=== PATIENT | female | born 1980 | race Caucasian/White ===

== ENCOUNTER 2020-05-09 11:39 | Inpatient (IN) | payer BC ==
[~2020-05-09 11:39] MED LIST: Lidocaine 1.5% with EPINEPHrine 1:200,000 5 ML Amp ONE
[2020-05-09] MEDS ORDERED: Sodium Chloride 0.9% 10 ML Syringe FLUSH PRN (11:57)
[2020-05-09] MEDS ORDERED: Nalbuphine 10 MG/ML Syringe IVPUSH PRN (11:57)
[2020-05-09] MEDS ORDERED: Oxytocin/Lactated Ringers 10 UNIT/1,000 ML BAG IV SCH ×2 (12:00)
--- NOTE | 2020-05-09 12:48 | PCM.PREANE ---
Preanesthetic Assessment - Procedure Proposed Procedure: Continuous labor epidural - Anesthesia/Transfusion/Family Hx Anesthesia History: Prior Anesthesia Without Reaction Transfusion History: No Prior Transfusion(s) - Review of Systems General: No Symptoms Pulmonary: No Symptoms Cardiovascular: No Symptoms Gastrointestinal: No Symptoms Neurological: No Symptoms Other: Reports: None - Physical Assessment ASA Class: 2 Mental Status: Alert & Oriented x3 Airway Class: Mallampati = 2 Dentition: Reports: Normal Dentition Thyro-Mental Finger Breadths: 3 Mouth Opening Finger Breadths: 3 ROM/Head Extension: Full Lungs: Clear to Auscultation, Normal Respiratory Effort Cardiovascular: Regular Rate, Regular Rhythm - Lab Values: Laboratory Last Values WBC 12.85 K/mm3 (3.98-10.04) H 05/09/20 12:20 RBC 3.72 M/mm3 (3.98-5.22) L 05/09/20 12:20 Hgb 11.5 gm/dl (11.2-15.7) 05/09/20 12:20 Hct 36.2 % (34.1-44.9) 05/09/20 12:20 MCV 97.3 fl (79.4-94.8) H 05/09/20 12:20 MCH 30.9 pg (25.6-32.2) 05/09/20 12:20 MCHC 31.8 g/dl (32.2-35.5) L 05/09/20 12:20 RDW Std Deviation 46.4 fL (36.4-46.3) H 05/09/20 12:20 Plt Count 177 K/mm3 (182-369) L 05/09/20 12:20 MPV 12.9 fl (9.4-12.3) H 05/09/20 12:20 Neut % (Auto) 79.0 % (34.0-71.1) H 05/09/20 12:20 Lymph % (Auto) 13.2 % (19.3-51.7) L 05/09/20 12:20 Norman % (Auto) 6.7 % (4.7-12.5) 05/09/20 12:20 Eos % (Auto) 0.5 (0.7-5.8) L 05/09/20 12:20 Baso % (Auto) 0.2 % (0.1-1.2) 05/09/20 12:20 Neut # (Auto) 10.14 K/mm3 (1.56-6.13) H 05/09/20 12:20 Lymph # (Auto) 1.70 K/mm3 (1.18-3.74) 05/09/20 12:20 Norman # (Auto) 0.86 K/mm3 (0.24-0.36) H 05/09/20 12:20 Eos # (Auto) 0.07 K/mm3 (0.04-0.36) 05/09/20 12:20 Baso # (Auto) 0.03 K/mm3 (0.01-0.08) 05/09/20 12:20 - Allergies Allergies/Adverse Reactions: Allergies Allergy/AdvReac Type Severity Reaction Status Date / Time No Known Allergies Allergy Verified 05/09/20 12:41 - Acknowledgements Anesthesia Type Planned: Epidural Pt an Appropriate Candidate for the Planned Anesthesia: Yes Alternatives and Risks of Anesthesia Discussed w Pt/Guardian: Yes Pt/Guardian Understands and Agrees with Anesthesia Plan: Yes PreAnesthesia Questionnaire - CURRENT (IN HOUSE) MEDS Current Meds: Current Medications Oxytocin/Lactated Ringer's (Pitocin In Lr 10 Units/1,000 Ml) 10 unit in 1,000 mls @ 12 mls/hr IV TITRATE JESSE; Protocol Oxytocin/Lactated Ringer's (Pitocin In Lr 10 Units/1,000 Ml) 10 unit in 1,000 mls @ 500 mls/hr IV .CONTINUOUS JESSE Lactated Ringer's (Ringers, Lactated) 1,000 mls @ 100 mls/hr IV ASDIRECTED JESSE Nalbuphine HCl (Nubain) 10 mg IVPUSH Q2H PRN PRN Reason: Pain Sodium Chloride (Saline Flush) 10 ml FLUSH ASDIRECTED PRN PRN Reason: Keep Vein Open
[2020-05-09] MEDS ORDERED: Bupivacaine/fentaNYL/NS 100 ML Bag EPIDUR PRN (13:05)
[2020-05-09] MEDS ORDERED: fentaNYL 100 MCG/2 ML SDV EPIDUR PRN (13:05)
[2020-05-09] MEDS ORDERED: diphenhydrAMINE 50 MG/ML SDV IVPUSH PRN (13:05)
[2020-05-09] MEDS ORDERED: ePHEDrine 50 MG/ML SDV IVPUSH PRN (13:05)
[2020-05-09] MEDS: Lactated Ringers 1,000 ML IV SCH ×3 (14:07→17:43)
--- NOTE | 2020-05-09 17:44 | PCM.LDHP ---
L&D History of Present Illness - General Date of Service: 05/09/20 Admit Problem/Dx: Patient Status Order with Admit Dx/Problem 05/09/20 11:58 Patient Status [ADT] Routine Admission Diagnosis/Problem Admission Diagnosis/Problem 05/09/20 17:36 Zahra is a 39-year-old 3 para 1999 white female who is presently at 40-1/7 weeks gestational age with an EF 05/08/2020 who is admitted for induction of labor. Source of Information: Patient History Limitations: Reports: No Limitations - History of Present Illness Introduction:: Zahra is a 39-year-old 3 para 2000 white female who is presently at 40-1/7 weeks gestational age with an EF 05/08/2020 who is admitted for induction of labor.Indications include increased distance from the hospital and multiparous status. The procedure, risks, benefits and alternatives of care including Financial onset of labor discussed in detail with patient. She appears understand as does her and they wish to proceed. 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 MILTON of 05/08/2020 was determined by a certain last menstrual starting 08/02/2019 and supported by an ultrasound done on 12/23/2019. Patient had menarche at age 18. Cycles every 28 days and regular. She was not using any control to time conception. Last menstrual period was approximately. Her past obstetric history includes the followin. Male infant born 08/21/2006 at 40 weeks gestational age after 8 hours of labor. weight was 6 lbs. 14 oz. Baby is born via . Child born in [facility]. Child's name is Winston. 2. Male born 04/21/2009 at 38 weeks gestational age after 10 hours of labor. weight 6 lbs. 12 oz. Baby was born via . Child was born in [place]. Had an epidural for labor analgesia. Child's name is Reynaldo. Umbilical cord had 2 vessels only. course: Patient's first visit occurred on 10/19/2019 at 11 weeks gestational age. Patient seen on a regular basis. Wakings from 141-159.4 pounds. Vital signs are stable throughout the course and fundal height growth was appropriate. Patient is group B strep negative. MMR shows non- immunity. Patient desired decorating consultant intervention prior to this delivery. She desires epidural. Rupert depression screening score on 12/19/2019 was 5/30. Patient plans to breast-feed. Pre-quell noninvasive screen was negative for trisomy 21, 18 and 13. Tdap was given on 04/11/2020. She did have one urinary tract infection in the course of . Laboratory testing and shows blood to be A+. Negative and by screen. Hemoglobin first visit was 11.8 g/dL and platelets are 250,000. Rubella titer showed equivocal results. Urine culture showed negative results. Hepatitis B surface antigen and HIV assays were both negative. Chlamydia and gonorrhea tests were both negative. Second trimester labs showed hemoglobin 12.0 and platelets of 205,000. Her 1 hour glucose was 89 which was normal. RPR on 02/08/2020 was nonreactive. Group B strep screen was negative. Allergies: None Medications: 1. vitamins 1 daily. 2. Ferrous sulfate 325 mg by mouth daily. Past medical history: 2 2. HPV 2004 Past surgical history: 1. LEEP 2005 for SWETHA. He prepped 2. ENT surgery consistent of sinus drainage corrections and wisdom teeth extraction. Family history: Mother is alive and well as is her father. A half brothers alive and well as is a half-sister. Maternal grandmother is secondary to pancreatic cancer at age 70. Maternal grandfather is alive at age 91. Grandmother and grandfather deceasedcause unknown. No known family history of cancer otherwise bleeding or clotting abnormalities, as she related issues or -related problems. Social history: The patient is . 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 She lives in [place] with her family. 's name is Parker. She does not use any significant loss of alcohol, drugs or tobacco. Review of systems: In general patient has no complaints. Baby is active Skin: Negative Lungs: No infectious symptoms or shortness of breath Cardiovascular: No chest pain or exercise intolerance Breasts: No lumps, changes in size, pain, dimpling, discharge or axillary or supraclavicular concerns. GI: Negative : Negative Musculoskeletal: Negative Neurological: Negative In general the patient is well-developed, well-nourished, pleasant female of sta tabitha age in no acute distress. Last visit patient's blood pressure was 120/70. Weight was 159.4 with a pregravid weight of 141. Her height is 5 feet 4. Prepregnancy body mass index is 20.8. Skin is warm dry without lesions. HEENT, neck and back within normal limits. Lungs are clear with good breath sounds in all lung bermudez. Cardiovascular exam shows regular and rhythm without murmurs. Breasts exam done at first visit found to be normal. It is not repeated. Abdomen is gravid with fundal height is 38 cm. Baby in vertex presentation. Genital exam per digital exam on last evaluation was 2 cm, 70% effaced, soft, mid position.. Extremities and neurological exam are grossly within normal limits. 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: Reports: , Other (See Below) Other OB/BYN History: LEEP 2004 - Past Surgical History HEENT Surgical History: Reports: Naso-Sinus Surgery Social & Family History - Family History Family Medical History: Noncontributory - Tobacco Use Smoking Status *Q: Never Smoker Second Hand Smoke Exposure: No - Caffeine Use Caffeine Use: Reports: None - Recreational Drug Use Recreational Drug Use: No H&P Review of Systems - Review of Systems: Review Of Systems: See Below L&D Exam - Exam Exam: See Below - Vital Signs Vital Signs: Last Vital Signs Temp 36.9 C 05/09/20 11:58 Pulse 76 05/09/20 11:58 Resp 16 05/09/20 11:58 BP 119/78 05/09/20 11:58 Pulse Ox Weight: 71.985 kg - Patient Data Lab Results Last 24 hrs: Laboratory Results - last 24 hr 05/09/20 05/09/20 05/09/20 Range/Units 12:20 12:20 13:00 WBC 12.85 H (3.98-10.04) K/mm3 RBC 3.72 L (3.98-5.22) M/mm3 Hgb 11.5 (11.2-15.7) gm/dl Hct 36.2 (34.1-44.9) % MCV 97.3 H (79.4-94.8) fl MCH 30.9 (25.6-32.2) pg MCHC 31.8 L (32.2-35.5) g/dl RDW Std Deviation 46.4 H (36.4-46.3) fL Plt Count 177 L (182-369) K/mm3 MPV 12.9 H (9.4-12.3) fl Neut % (Auto) 79.0 H (34.0-71.1) % Lymph % (Auto) 13.2 L (19.3-51.7) % Huron % (Auto) 6.7 (4.7-12.5) % Eos % (Auto) 0.5 L (0.7-5.8) Baso % (Auto) 0.2 (0.1-1.2) % Neut # (Auto) 10.14 H (1.56-6.13) K/mm3 Lymph # (Auto) 1.70 (1.18-3.74) K/mm3 [place] # (Auto) 0.86 H (0.24-0.36) K/mm3 Eos # (Auto) 0.07 (0.04-0.36) K/mm3 Baso # (Auto) 0.03 (0.01-0.08) K/mm3 COVID-19 (REYNA) Negative (NEGATIVE) Blood Type A POSITIVE Gel Antibody Screen Negative Result Diagrams: 05/09/20 12:20 Problem List Initiated/Reviewed/Updated: Yes Orders Last 24hrs: Active Orders 24 hr Category Date Time Status Patient Status [ADT] Routine ADT 05/09/20 11:58 Active Activity as Tolerated [RC] PFP Care 05/09/20 11:58 Active Communication Order [RC] ASDIRECTED Care 05/09/20 11:58 Active Heart Tones [RC] ASDIRECTED Care 05/09/20 11:58 Active Non Stress Test [RC] PER UNIT ROUTINE Care 05/09/20 11:58 Active Notify Provider [RC] ASDIRECTED Care 05/09/20 13:05 Active Notify Provider [RC] PFP Care 05/09/20 11:58 Active Notify Provider [RC] PRN Care 05/09/20 11:58 Active Peripheral IV Care [RC] . DIRECTED Care 05/09/20 11:58 Active Vital Signs [RC] PER UNIT ROUTINE Care 05/09/20 11:58 Active Regular Diet [DIET] Diet 05/09/20 Lunch Active PATIENT RETYPE [BBK] Routine Lab 05/09/20 13:21 Ordered RAPID PLASMA REAGIN,RPR [CHEM] Routine Lab 05/09/20 12:20 Received Bupivacaine/fentaNYL/NS [fentaNYL/Bupivacaine/NS 2 MCG- Med 05/09/20 13:05 Active 0.125% 100 ML] 100 ml EPIDUR ASDIRECTED PRN Lactated Ringers [Ringers, Lactated] 1,000 ml Med 05/09/20 12:00 Active IV ASDIRECTED Nalbuphine [Nubain] Med 05/09/20 11:57 Active 10 mg IVPUSH Q2H PRN Oxytocin/Lactated Ringers [Pitocin in LR 10 Units/1,000 Med 05/09/20 12:00 Active ML] 10 unit in 1,000 ml IV .CONTINUOUS Oxytocin/Lactated Ringers [Pitocin in LR 10 Units/1,000 Med 05/09/20 12:00 Active ML] 10 unit in 1,000 ml IV TITRATE Sodium Chloride 0.9% [Saline Flush] Med 05/09/20 11:57 Active 10 ml FLUSH ASDIRECTED PRN diphenhydrAMINE [Benadryl] Med 05/09/20 13:05 Active 25 mg IVPUSH Q6H PRN ePHEDrine [ePHEDrine sulfate] Med 05/09/20 13:05 Active 5 mg IVPUSH ASDIRECTED PRN fentaNYL [Sublimaze] Med 05/09/20 13:05 Active 100 mcg EPIDUR Q3H PRN Electronic Heart Tones Ext w TOCO [WOMSER] Oth 05/09/20 11:58 Ordered Routine Electronic Heart Tones Internal [WOMSER] Per Unit Oth 05/09/20 11:58 Ordered Routine Peripheral IV Insertion Adult [OM.PC] Routine Oth 05/09/20 11:58 Ordered Resuscitation Status Routine Resus Stat 05/09/20 11:57 Ordered Medication Orders Diphenhydramine HCl (Benadryl) 25 mg IVPUSH Q6H PRN PRN Reason: pruritis Ephedrine Sulfate (Ephedrine Sulfate) 5 mg IVPUSH ASDIRECTED PRN PRN Reason: Hypotension Fentanyl (Sublimaze) 100 mcg EPIDUR Q3H PRN PRN Reason: Pain Fentanyl/Bupivacaine HCl (Fentanyl/Bupivacaine/Ns 2 Mcg-0.125% 100 Ml) 100 ml EPIDUR ASDIRECTED PRN PRN Reason: Pain Oxytocin/Lactated Ringer's (Pitocin In Lr 10 Units/1,000 Ml) 10 unit in 1,000 mls @ 12 mls/hr IV TITRATE JESSE; Protocol Last Admin: 05/09/20 14:07 Dose: 2 munits/min, 12 mls/hr Documented by: [id number] Oxytocin/Lactated Ringer's (Pitocin In Lr 10 Units/1,000 Ml) 10 unit in 1,000 mls @ 500 mls/hr IV .CONTINUOUS JESSE Lactated Ringer's (Ringers, Lactated) 1,000 mls @ 100 mls/hr IV ASDIRECTED JESSE Last Admin: 05/09/20 16:28 Dose: 100 mls/hr Documented by: [id number] Infusion: 05/09/20 16:28 Dose: 100 mls/hr Documented by: [id number] Admin: 05/09/20 14:07 Dose: 100 mls/hr Documented by: [id number] Nalbuphine HCl (Nubain) 10 mg IVPUSH Q2H PRN PRN Reason: Pain Sodium Chloride (Saline Flush) 10 ml FLUSH ASDIRECTED PRN PRN Reason: Keep Vein Open Assessment/Plan Comment:: 1. 40-1/7 week gestational age admitted for induction of labor 2. Rubella titer shows statuspatient candidate for MMR after delivery and prior to discharge. 3. Patient desires epidural in labor and delivery 4. Group B strep screen is negative. 5.Patient plans to breast-feed. 6. T dap Given on 04/11/2020 Plan: 1. Pitocin/AROM induction of labor. Despite Spontaneous vaginal delivery. 2. Will offer epidural when necessary per patient desire. 3. Recommend MMR and delivery. 4. Routine labor care. 5. CBC and RPR per protocol upon admission.
[2020-05-09] MEDS ORDERED: Lidocaine 1% 0 ML ONE (20:40)
[2020-05-09] MEDS ORDERED: Propofol 200 MG/20 ML SDV ONE (20:40)
[2020-05-09] MEDS ORDERED: Succinylcholine/Sod PF 100 MG/5 ML SYRINGE IV ONE (20:42)
--- NOTE | 2020-05-09 21:00 | PCM.SN.2 ---
- Free Text/Narrative Note: Delivery note: Zahra is a 39-year-old 3 para 2000 white female who is presently at 40-1/7 weeks gestational age with an MILTON 05/08/2020 based upon her certain LMP and earliest ultrasound who is admitted for induction of labor. Patient underwent Pitocin induction with AROM augmentation. She progressed steadily to complete cervical dilation by approximately 2000 hrs. She had epidural placed for labor analgesia. At 2031 hrs. on 05/09/2020 she delivered a viable, lindsey, female in a direct occiput anterior position over an intact perineum. There was a nuchal cord 2 which was loose and was easily reduced over the baby's head. The baby was placed on mom's abdomen, nose and mouth were bulb suctioned and the baby was dried with a warm blanket. Umbilical cord was long and also to approximate 2-3 minutes at which time the cord was clamped 2 and then cut by the baby's father Parker. Pitocin was increased to 500 mL per hour to increase the uterine tone and decrease possibility of bleeding. The baby weighed 3220 g menses 6 pounds 10.5 ounces), length of 20.0 inches and scores of 8 and 9. Cord blood was obtained. The umbilical cord had 3 vessels. The placenta delivered at 2034 hrs. in a Boykin presentation, appeared sure, intact and complete and was discarded per patient desire. Estimated blood loss was 100 mL. Patient plans to breast-feed. Condition: Good
[2020-05-09] MEDS ORDERED: Benzocaine/Menthol 20%-0.5% Spray 56 GM Canister TOP PRN (21:34)
[2020-05-09] MEDS ORDERED: Witch Hazel Medicated Pads 40/Jar TOP PRN (21:34)
[2020-05-09] MEDS ORDERED: Acetaminophen 325 MG Tab PO PRN (21:34)
[2020-05-09] MEDS: Docusate Sodium 100 MG Cap PO PRN (22:06)
[2020-05-09] MEDS: Ibuprofen 600 MG Tab PO PRN (22:06)
--- NOTE | 2020-05-10 06:17 | PCM.SN.2 ---
- Free Text/Narrative Note: note: Patient is doing well in the period. Minimal lochia, voiding well, ambulated without problems. Nursing without concerns. Patient is afebrile, vital signs are stable Abdomen is flat, soft, uterus is below the umbilicus and is firm and nontender. Legs are nontender. Assessment: recovery going well. Plan: Routine care. Patient be discharged home within the next 24- 48 hours.
[2020-05-10] MEDS: Ibuprofen 600 MG Tab PO PRN ×2 (07:30→14:45)
--- NOTE | 2020-05-10 08:00 | PCM48HPAN ---
Post Anesthesia Note - EVALUATION WITHIN 48HRS OF ANESTHETIC Vital Signs in Normal Range: Yes Patient Participated in Evaluation: Yes Respiratory Function Stable: Yes Airway Patent: Yes Cardiovascular Function Stable: Yes Hydration Status Stable: Yes Pain Control Satisfactory: Yes Nausea and Vomiting Control Satisfactory: Yes Mental Status Recovered: Yes Vital Signs: Last Vital Signs Temp 36.7 C 05/10/20 03:52 Pulse 54 L 05/10/20 03:52 Resp 14 05/10/20 03:52 BP 110/72 05/10/20 03:52 Pulse Ox 96 05/10/20 03:52 - COMMENTS/OBSERVATIONS Free Text/Narrative:: no anesthesia complications noted
[2020-05-10] MEDS: Prenatal Multivitamin with Calcium/Folic Acid/Iron Tab PO SCH (09:42)
--- NOTE | 2020-05-11 06:07 | PCM.DCSUM1 ---
Discharge Summary - Hospital Course Free Text/Narrative:: Zahra is a 39-year-old 3 para 2000 white female who is presently at 40-1/7 weeks gestational age with an MILTON 05/08/2020 based upon her certain LMP and earliest ultrasound who is admitted for induction of labor. Patient underwent Pitocin induction with AROM augmentation. She progressed steadily to complete cervical dilation by approximately 2000 hrs. She had epidural placed for labor analgesia. At 2032 hrs. on 05/09/2020 she delivered a viable, lindsey, female in a direct occiput anterior position over an intact perineum. There was a nuchal cord 2 which was loose and was easily reduced over the baby's head. The baby was placed on mom's abdomen, nose and mouth were bulb suctioned and the baby was dried with a warm blanket. Umbilical cord was long and also to approximate 2-3 minutes at which time the cord was clamped 2 and then cut by the baby's father Parker. Pitocin was increased to 500 mL per hour to increase the uterine tone and decrease possibility of bleeding. The baby weighed 3220 g menses 6 pounds 10.5 ounces), length of 20.0 inches and scores of 8 and 9. Cord blood was obtained. The umbilical cord had 3 vessels. The placenta delivered at 2034 hrs. in a Boykin presentation, appeared sure, intact and complete and was discarded per patient desire. Estimated blood loss was 100 mL. Patient plans to breast-feed. patient has done well. She is voiding without problems, ambulating well and nursing is going without problems. She has minimal lochia. She is desiring discharge home. Condition: Good Diagnosis: Stroke: No - Discharge Data Discharge Date: 05/11/20 Discharge Disposition: Home, Self-Care 01 Condition: Good - Referral to Home Health Primary Care Physician: PCP None - Patient Instructions Diet: Regular Diet as Tolerated (Nursing diet was increased calories and calcium as recommended) Activity: As Tolerated (No intercourse or tampons until bleeding resolves) Driving: May Drive Today Showering/Bathing: May Shower (May take a bath) Notify Provider of: Fever, Increased Pain, Swelling and Redness, Nausea and/or Vomiting - Discharge Plan Home Medications: Home Meds Vits #93/Iron Fum/FA [ Formula Tablet] 1 each PO DAILY 05/09/20 [History] Acetaminophen [Tylenol] 650 mg PO Q4H PRN tablet 05/11/20 [Rx] Ibuprofen [Motrin] 600 mg PO Q4H PRN tablet 05/11/20 [Rx] Referrals: Kalpesh Woodall MD [Physician] - [facility] - Discharge Summary/Plan Comment DC Time >30 min.: No Discharge Summary/Plan Comment: Discharge instructions: 1. Discharge home 2. Diet, activity and follow-up discussed with patient. Recommend nursing diet with increased calories and calcium. 3. Precautions given concern increased pain, bleeding, temperature, signs/symptoms of DVT/PE. 4. Medications per home medication was printed, discussed with and given to the patient. 5. Return to clinic-Dr. Woodall[facility], June 2020 Diagnosis: Term -delivered Condition: Good - Patient Data Vitals - Most Recent: Last Vital Signs Temp 36.6 C 05/11/20 04:27 Pulse 55 L 05/11/20 04:27 Resp 15 05/11/20 04:27 BP 111/67 05/11/20 04:27 Pulse Ox 100 05/11/20 04:27 Weight - Most Recent: 71.985 kg I&O - Last 24 hours: Intake & Output 05/10/20 05/10/20 05/11/20 14:59 22:59 06:59 Intake Total 240 Balance 240 Med Orders - Current: Current Medications Acetaminophen (Tylenol) 650 mg PO Q4H PRN PRN Reason: mild pain or fever Benzocaine/Menthol (Dermoplast Pain Relief [place]) 0 gm TOP ASDIRECTED PRN PRN Reason: Perineal Comfort Measure Last Admin: 05/09/20 22:06 Dose: 1 canister Documented by: Docusate Sodium (Colace) 100 mg PO BID PRN PRN Reason: Constipation Last Admin: 05/09/20 22:06 Dose: 100 mg Documented by: Ibuprofen (Motrin) 600 mg PO Q4H PRN PRN Reason: Mild pain or fever Last Admin: 05/10/20 14:45 Dose: 600 mg Documented by: Prenat Multivit/Street [employer] Line Installer/Iron/Folic Ac ( Plus Iron) 1 each PO DAILY JESSE Last Admin: 05/10/20 09:42 Dose: 1 each Documented by: Blanche Lewis (Julieta) 1 pad TOP ASDIRECTED PRN PRN Reason: Perineal Comfort Measure Last Admin: 05/09/20 22:05 Dose: 1 canister Documented by: Discontinued Medications Diphenhydramine HCl (Benadryl) 25 mg IVPUSH Q6H PRN PRN Reason: pruritis Ephedrine Sulfate (Ephedrine Sulfate) 5 mg IVPUSH ASDIRECTED PRN PRN Reason: Hypotension Fentanyl (Sublimaze) 100 mcg EPIDUR Q3H PRN PRN Reason: Pain Last Admin: 05/09/20 17:10 Dose: 100 mcg Documented by: Fentanyl/Bupivacaine HCl (Fentanyl/Bupivacaine/Ns 2 Mcg-0.125% 100 Ml) 100 ml EPIDUR ASDIRECTED PRN PRN Reason: Pain Last Admin: 05/09/20 17:30 Dose: 100 ml Documented by: Oxytocin/Lactated Ringer's (Pitocin In Lr 10 Units/1,000 Ml) 10 unit in 1,000 mls @ 12 mls/hr IV TITRATE JESSE; Protocol Last Titration: 05/09/20 19:01 Dose: 2 munits/min, 12 mls/hr Documented by: Oxytocin/Lactated Ringer's (Pitocin In Lr 10 Units/1,000 Ml) 10 unit in 1,000 mls @ 500 mls/hr IV .CONTINUOUS JESSE Lactated Ringer's (Ringers, Lactated) 1,000 mls @ 100 mls/hr IV ASDIRECTED JESSE Last Admin: 05/09/20 17:43 Dose: 100 mls/hr Documented by: Lidocaine HCl (Xylocaine-Mpf 1%) Confirm Administered Dose 0 mls @ as directed .ROUTE .STK-MED ONE Stop: 05/09/20 20:41 Lidocaine/Epinephrine (Xylocaine-Mpf 1.5% W/Epinephrine 1:200,000) 5 ml .ROUTE .STK-MED ONE Stop: 05/09/20 00:01 Nalbuphine HCl (Nubain) 10 mg IVPUSH Q2H PRN PRN Reason: Pain Propofol (Diprivan 20 Ml) Confirm Administered Dose 0 mg .ROUTE .STK-MED ONE Stop: 05/09/20 20:41 Sodium Chloride (Saline Flush) 10 ml FLUSH ASDIRECTED PRN PRN Reason: Keep Vein Open
[2020-05-11] MEDS ORDERED: Measles, Mumps & Rubella Vaccine 0.5 ML SDV SUBCUT ONE (07:57)
[2020-05-11] MEDS: Ibuprofen 600 MG Tab PO PRN (08:04)
[2020-05-11] MEDS: Docusate Sodium 100 MG Cap PO PRN (08:05)
[2020-05-11] MEDS: Prenatal Multivitamin with Calcium/Folic Acid/Iron Tab PO SCH (08:05)
== END 2020-05-11 10:20 | disposition home or self-care (01) | DRG 560 ==
LOC: JD.OB 11:39 → OBSVTOIN 20:32 → JD.OB 20:32
PROVIDERS: ADMIT Obstetrics & Gynecology; ATTEND Obstetrics & Gynecology
PROC: 10E0XZZ Delivery of Products of Conception, External Approach (ICD-10-PCS; principal; 2020-05-09)
PROC: 10907ZC Drainage of Amniotic Fluid, Therapeutic from Products of Conception, Via Natural or Artificial Opening (ICD-10-PCS; 2020-05-09)
PROC: 3E033VJ Introduction of Other Hormone into Peripheral Vein, Percutaneous Approach (ICD-10-PCS; 2020-05-09)
PROC: 3E0R3BZ Introduction of Anesthetic Agent into Spinal Canal, Percutaneous Approach (ICD-10-PCS; 2020-05-09)
DX: O48.0 Post-term pregnancy (principal); O69.81X0 Labor and delivery complicated by cord around neck, without compression, not applicable or unspecified; Z37.0 Single live birth; Z3A.40 40 weeks gestation of pregnancy; Z11.59 Encounter for screening for other viral diseases
CPT/HCPCS: 36415; 51702; 59025; 59409; 85025; 86592; 86850; 86900; 86901; 90471; 90707; A9270-GY; J0330; J2001; J2590; J2704; J3010; J7120; U0002